=== PATIENT | male | born 1980 | race Caucasian/White ===

== ENCOUNTER 2020-12-02 18:43 | Emergency (ER) | payer OTHER ==
[~2020-12-02] VITALS: Ht 175.3 cm; Wt 87.7 kg
[2020-12-02 19:07] VITALS: BP 128/95
--- NOTE | 2020-12-02 21:15 | NUR ---
Patient given discharge instructions and they have confirmed that they understand the instructions. Patient ambulatory with steady gait.
== END 2020-12-02 21:18 | disposition home or self-care (01) ==
LOC: ED 19:13
DX: M21.612 Bunion of left foot (principal); G89.29 Other chronic pain; M79.672 Pain in left foot
CPT/HCPCS: 99281